=== PATIENT | female | born 1960 | race Caucasian/White ===

== ENCOUNTER 2017-01-29 17:36 | Emergency (ER) | payer SELFPAY ==
[~2017-01-29] VITALS: Ht 157.5 cm; Wt 61.5 kg
[2017-01-29 17:37] VITALS: Ht 157.5 cm; Wt 61.5 kg
== END 2017-01-29 18:39 | disposition left against medical advice (07) ==
LOC: E/R 17:36
DX: Z53.21 Procedure and treatment not carried out due to patient leaving prior to being seen by health care provider (principal)

== ENCOUNTER 2017-05-13 16:16 | Emergency (ER) | payer SELFPAY ==
[~2017-05-13] VITALS: Ht 160 cm; Wt 62.0 kg
[2017-05-13 16:45] VITALS: Ht 160 cm; Wt 62.0 kg
== END 2017-05-13 20:31 | disposition left against medical advice (07) ==
LOC: FTE 16:16 → E/R 20:31
DX: Z53.21 Procedure and treatment not carried out due to patient leaving prior to being seen by health care provider (principal)